=== PATIENT | male | born 1965 ===

== ENCOUNTER → 2024-12-11 09:54 | Outpatient (CLI) | payer OTHER, SELFPAY ==
--- NOTE | 2024-12-11 | DI.RAD.S_ITS ---
PROCEDURE: XR KNEE RT 3V INDICATIONS: PAIN TECHNIQUE: 3 views of the knee were acquired. COMPARISON: [facility], [place], XR KNEE LT 3V, 12/11/2024, 10:34. FINDINGS: Bones: No fractures or dislocations. No suspicious bony lesions. Early marginal osteophytes with preserved joint spaces. Soft tissues: No joint effusion. No suspicious soft tissue calcifications. IMPRESSION: Evidence of early osteoarthritis. Dictated by: Rickie Bean RRA Interpreted: Greg Daigle MD on 12/11/2024 at 12:30 Transcribed by: DEBBIE on 12/11/2024 at 12:30 Approved by: Greg Daigle M.D. on 12/19/2024 at 9:48
--- NOTE | 2024-12-11 | DI.RAD.S_ITS ---
PROCEDURE: XR KNEE LT 3V INDICATIONS: PAIN TECHNIQUE: 3 views of the knee were acquired. COMPARISON: [facility], CR, XR KNEE RT 3V, 12/11/2024, 10:34. FINDINGS: Bones: No fractures or dislocations. No suspicious bony lesions. Tiny marginal osteophytes with preserved joint spaces. Soft tissues: No joint effusion. No suspicious soft tissue calcifications. IMPRESSION: Evidence of early osteoarthritis. Dictated by: Rickie Bean RRA Interpreted: Greg Daigle MD on 12/11/2024 at 11:51 Transcribed by: DEBBIE on 12/11/2024 at 12:30 Approved by: Greg Daigle M.D. on 12/19/2024 at 9:47
--- NOTE | 2024-12-11 | DI.RAD.S_ITS ---
PROCEDURE: XR LUMBAR SPINE 2-3V INDICATIONS: PAIN TECHNIQUE: 3 views of the lumbar spine were acquired. COMPARISON: [facility], [place], PET PSMA PYLARIFY, 09/14/2024, 16:00. [facility], CT, CT HATCH, 11/20/2024, 10:40. FINDINGS: Bones: 5 [id number] vertebrae are present. Mild levo scoliosis centered at the L3 level. Grade 1 spondylolisthesis L4-L5 and 2 mm retrolisthesis L1-L2, L2-L3, L3-L4 and L5-S1 mild multilevel disc height loss with endplate sclerosis and spurring. Mild facet joint arthropathy L4-L5 and L5-S1. Possible mild compression fracture at T12 level where there is minimal vertebral body wedging of indeterminate age. No suspicious bony lesions. Soft tissues: Overlying bowel gas pattern is normal. No suspicious soft tissue calcifications. Vascular calcifications indicate atherosclerosis. IMPRESSION: 1. Mild T12 compression fracture at the T12 level where there is minimal wedging is present which appears similar to prior PET scan dated 09/14/2024. 2. Mild multilevel lumbar spine spondylosis. Dictated by: Rickie Bean RRA Interpreted: Greg Daigle MD on 12/11/2024 at 11:09 Transcribed by: DEBBIE on 12/11/2024 at 11:51 Approved by: Greg Daigle M.D. on 12/19/2024 at 9:47
== END ==
PROVIDERS: Referring Provider Internal Medicine; Visit Provider Internal Medicine
DX: M47.816 Spondylosis without myelopathy or radiculopathy, lumbar region (principal); M47.817 Spondylosis without myelopathy or radiculopathy, lumbosacral region; M48.54XA Collapsed vertebra, not elsewhere classified, thoracic region, initial encounter for fracture; M25.762 Osteophyte, left knee; M25.761 Osteophyte, right knee; M54.50 Low back pain, unspecified; M25.569 Pain in unspecified knee
CPT/HCPCS: 72100; 73562